=== PATIENT | female | born 1980 | race Native Hawaiian/Other Pacific Islander ===

== ENCOUNTER 2017-08-18 10:44 | Emergency (ER) | payer OTHER, BC ==
[2017-08-18 10:52] VITALS: RESP 18; BMI 21.4
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
[2017-08-18 13:25] VITALS: BP 104/69; PULSE 65; TEMP 98; O2SAT 98
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
== END 2017-08-18 13:26 | disposition home or self-care (01) ==
LOC: ED 10:44
DX: S09.90XA Unspecified injury of head, initial encounter (principal); V49.9XXA Car occupant (driver) (passenger) injured in unspecified traffic accident, initial encounter; M50.221 Other cervical disc displacement at C4-C5 level; M50.222 Other cervical disc displacement at C5-C6 level; M79.605 Pain in left leg
CPT/HCPCS: 70450; 71250; 72125; 73502; 73560; 74176; 82948; 96374; 99285; J1885

== ENCOUNTER 2017-10-07 17:09 | Emergency (ER) | payer OTHER, BC ==
[2017-10-07 17:09] VITALS: BMI 21.4
[2017-10-07 17:30] VITALS: BP 123/79; PULSE 74; RESP 16; TEMP 98.6; O2SAT 99
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
[2017-10-07] MEDS ORDERED: TDAP Vaccine 0.5 mL Syr IM ONE (19:41)
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
== END 2017-10-07 21:20 | disposition home or self-care (01) ==
LOC: ED 17:09
DX: S16.1XXA Strain of muscle, fascia and tendon at neck level, initial encounter (principal); V49.9XXA Car occupant (driver) (passenger) injured in unspecified traffic accident, initial encounter; Z23 Encounter for immunization

== ENCOUNTER 2018-06-07 12:17 | Emergency (ER) | payer BC, OTHER ==
[2018-06-07 12:18] VITALS: BMI 21.4
[2018-06-07 12:37] VITALS: TEMP 98.5; O2SAT 100
[2018-06-07] MEDS ORDERED: Lidocaine 1% Inj (20ml) IJ STA (12:54)
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
[2018-06-07 13:27] LABS: PH,URINE 6.5 (4.7-8.0); URINE APPEARANCE SL CLOUDY (CLEAR); URINE BILIRUBIN NEGATIVE (NEGATIVE); URINE BLOOD LARGE (NEGATIVE); URINE COLOR YELLOW (YELLOW); URINE GLUCOSE (UA) NEGATIVE (NEGATIVE); URINE LEUKOCYTE ESTERASE NEGATIVE Leu/uL (NEGATIVE); URINE PROTEIN NEGATIVE mg/dL (<30 mg/dL); URINE UROBILINOGEN 0.2 E.U./dL (<1 E.U./dL)
[2018-06-07 13:30] LABS: URINE WBC 0 - 2 /hpf (0-6)
[2018-06-07 14:00] LABS: BASO # 0.01 K/mm3 (0.0-2.0); BASO % 0.2 % (0.0-3.0); EOS # 0.1 (0.0-0.7); EOS % 1.2 % (1.5-5.0); GRAN # 4.37 (1.4-6.5); GRAN % 66.8 % (50.0-68.0); HEMOGLOBIN 10.7 g/dL (12.0-16.0); LYMPH # 1.7 (1.2-3.4); LYMPH % 25.4 % (22.0-35.0); MEAN CORPUSCULAR HEMOGLOBIN 20.5 pg (25.0-35.0); MEAN PLATELET VOLUME 10.5 fl (7.0-11.0); MONO # 0.4 (0.1-0.6); MONO % 6.4 % (1.0-6.0); RBC 5.23 10^6/uL (3.5-6.1); RED CELL DISTRIBUTION WIDTH 15.4 % (11.5-14.5); WHITE BLOOD COUNT 6.5 10^3/uL (4.5-11.0)
[2018-06-07 14:13] LABS: ALB/GLOB RATIO 1.2 (1.1-1.8); ALT/SGPT 18 U/L (7-56); AST/SGOT 38 U/L (14-36); BLOOD UREA NITROGEN 9 mg/dL (7-21); CALCIUM 9.6 mg/dL (8.4-10.5); GFR NON-AFRICAN AMERICAN > 60
[2018-06-07 15:28] VITALS: BP 101/65; PULSE 65; RESP 16
== END 2018-06-07 15:26 | disposition home or self-care (01) ==
LOC: ED 12:17
DX: L73.2 Hidradenitis suppurativa (principal)
CPT/HCPCS: 10060; 80053; 81001; 85025; 87070; 96374; 99282; J1885